=== PATIENT | male | born 1960 | race Two or more races ===

== ENCOUNTER 2020-08-24 09:24 | Emergency (ER) | payer OTHER ==
[~2020-08-24] VITALS: Ht 175.3 cm; Wt 118.4 kg
[~2020-08-24 09:24] MED LIST: ULTRACET PO
[2020-08-24] MEDS ORDERED: MEDROLPACK PO (14:50)
== END 2020-08-24 14:54 | disposition home or self-care (01) ==
LOC: ER 09:24
DX: R53.1 Weakness (principal); R53.81 Other malaise; Z03.818 Encounter for observation for suspected exposure to other biological agents ruled out